=== PATIENT | female | born 1985 | race Caucasian/White ===

== ENCOUNTER 2022-03-09 08:47 | Outpatient (CLI) | payer OTHER, SELFPAY ==
[2022-03-09 12:48] LABS: Cholesterol* 181 mg/dL (90-199)
[2022-03-09 12:49] LABS: Glucose* 93 mg/dL (60-115); HDL Cholesterol* 61 mg/dL (>=50); LDL Cholesterol Calculated 87 mg/dL (<100); Triglycerides* 163 mg/dL (40-149)
== END 2022-03-09 08:48 | disposition home or self-care (01) ==
LOC: NFLDREF 08:48
PROVIDERS: PCP Physician Assistant Medical; Visit Provider Registered Nurse
DX: Z01.419 Encounter for gynecological examination (general) (routine) without abnormal findings (principal); Z13.1 Encounter for screening for diabetes mellitus; Z13.6 Encounter for screening for cardiovascular disorders
CPT/HCPCS: 80061; 82947

== ENCOUNTER 2024-08-20 14:42 | Outpatient (CLI) | payer OTHER, SELFPAY ==
[2024-08-22 20:53] LABS: HPV Source Cervix; HPV, High Risk by TMA Not Detected
== END 2024-08-20 14:43 | disposition home or self-care (01) ==
PROVIDERS: PCP Physician Assistant Medical; Visit Provider Registered Nurse
DX: Z12.4 Encounter for screening for malignant neoplasm of cervix (principal)
CPT/HCPCS: 87624; 87625; 88141; 88142